=== PATIENT | female | born 1960 | race Caucasian/White ===

== ENCOUNTER 2018-08-30 14:04 | Emergency (ER) | payer SELFPAY ==
--- NOTE | 2018-08-30 14:05 | W.ED.GENAD ---
Discharge Plan Disposition Patient Disposition: HOME Condition: Good Discharge Details Chief Complaint: Orthopedic Clinical Impression: Right shoulder strain, Strain of deltoid muscle Primary Care Provider: Belinda Petersen ED Provider: Rufino Westfall Home Meds and New Rx's Prescriptions: New lidocaine [Lidoderm] 1 PATCH patch 1 patch Topical Q24H Qty: 4 RF: 0 No Action diphenhydramine HCl [Benadryl] 25 MG capsule 25 mg PO Q6H PRN RF: 0 EXCEDRIN MIGRAINE TABLET 1 EACH tablet 2 ea PO PRN RF: 0 lorazepam 0.5 MG tablet 0.5 mg PO DAILY PRNQty: 30 RF: 0 triamcinolone acetonide 15 GM cream 1 papi Topical BID PRNQty: 1 RF: 3 Discharge Instructions Instructions: Muscle Strain (ED) Additional Instructions: Please use the sling only as needed, please move your shoulder and arm every direction multiple times throughout the day to maintain mobility. Please use Tylenol and Motrin as needed for pain, as well as Lidoderm patch. If you notice any worsening of your symptoms, or any new symptoms such as vomiting, diarrhea, fever, chills, shortness of breath, chest pain, numbness, weakness, or fainting , please return immediately to the emergency department for reevaluation. Please follow up with your primary care provider as soon as possible for reassessment and reevaluation. As always, it was a pleasure participating in your medical care today. Referrals: Belinda Petersen MD [Primary Care Provider] - Medical Decision Making This is a pleasant 58-year-old female who presents today for evaluation of right shoulder pain. The patient states that yesterday she was lifting a heavy air conditioner with her feels like she might have strained her right shoulder. Morning she woke up with achiness in the right shoulder, she also admits to occasional intermittent tingling in her fingertips, as well as mild weakness with movement of her shoulder secondary to pain. Exam demonstrates notable worsening of her pain with passive and active movement of the shoulder, particularly with movement of the rotator cuff. EKG shows no evidence of STEMI, she has no significant cardiac risk factors. Signs and symptoms appear clinically inconsistent with ACS. Signs and symptoms are more concerning for an acute shoulder sprain. We will get an x-ray to rule out fracture. 3:34 PM X-ray results show no evidence of acute fracture or dislocation. Repeat exam demonstrates complete resolution of her tingling, and mild to moderate improvement of her pain. She still continues to have pain with abduction of the shoulder, and movements including the rotator cuff. Strength appears intact. Do feel that her symptoms are most likely secondary to a shoulder sprain. No neurologic deficits concerning for stroke, and signs and symptoms are inconsistent with brain mass lesion or stroke at this time. No evidence of ACS medically. EKG benign. I feel that her pain is likely secondary to a sprain from her lifting of the air conditioner yesterday. Do recommend conservative management, sling as needed, arm stretching exercises, and close follow-up with her PCP. We discussed red flags for which to return. I have extensively reviewed the treatment plan and discharge instructions with the patient. I have addressed all patient concerns at this time. The patient was made aware of what symptoms to monitor for that would warrant a return to the emergency department. Discussed the plan with the patient, they demonstrate verbal understanding and agreement with our assessment and plan at this time. EKG 14: 27 Rate 68, intervals normal, sinus rhythm, no significant ST elevations or depressions, inverted T wave in V1. No significant Q waves. Exam(s) a RAD:XR shoulder RT complete 2+V SYMPTOMS/DIAGNOSIS: RT SHOULDER PAIN WITH MOVEMENT RIGHT SHOULDER: Five views were obtained. There are minimal hypertrophic degenerative changes of the acromioclavicular joint. No other bony or soft tissue abnormality seen. Ordered By: Rufino Westfall DO CC: [facility] General Date/Time Provider Initiated Documentation: 08/30/18 14:04. HPI Narrative: This is a 58-year-old female with no significant past medical history who presents today for evaluation of right shoulder pain. Patient states that yesterday she was lifting a notably heavy air conditioner with her . She feels like she was straining her shoulder during that episode. She states that at 4 AM this morning she woke up and noted that her shoulder was significantly achy. Worse with movement. Was not improved by Tylenol. The pain is mainly in the shoulder itself, however she does have intermittent tingling in her fingers. She denies any chest pain, chest heaviness, chest tightness, neck pain, shortness of breath. She denies any cough fever or chills. She denies any previous history of cardiac disease, pulmonary disease, hypertension, high cholesterol. She does admit to a family history of heart disease in the 60s and her mother. She denies any other complaints at this time. Any previous surgeries or injuries to the shoulder. Related Data Home Medications Medication Instructions Recorded Confirmed Excedrin Migraine Tablet 2 ea PO PRN tab 12/26/12 diphenhydramine HCl [Benadryl] 25 mg PO Q6H PRN tab 12/26/12 lorazepam 0.5 mg PO DAILY PRN #30 tab 01/22/13 triamcinolone acetonide 1 papi TOPICAL BID PRN #1 tube 08/08/13 lidocaine [Lidoderm] 1 patch TOPICAL Q24H #4 patch 08/30/18 Previous Rx's Medication Instructions Recorded lidocaine [Lidoderm] 1 patch TOPICAL Q24H #4 patch 08/30/18 Allergies Allergy/AdvReac Type Severity Reaction Status Date / Time No Known Allergies Allergy Unverified 12/26/12 09:54 Review of Systems Review of Systems All systems reviewed & are unremarkable except as noted in HPI and below PFSH Medical History ASCUS (11/05/10) Anxiety Chronic low back pain Eczema History of migraine Surgical History Dilation and curettage (06/11/03) Social History Smoking/Tobacco Use Status: Former Tobacco Use Drug use: Never Substance use type: does not use Do you feel safe at home: Yes Do you feel safe in your relationship?: Yes Exam Narrative Exam Narrative: 1.Const: Well-nourished, Well-developed, appearing stated age 2.Eyes: PERRL, no conjunctival injection, and symmetrical lids. 3.ENT: Atraumatic external nose and ears. Moist MM. Neck: Symmetric, trachea midline, No thyromegaly. 4.CVS: +S1/S2, No murmurs or gallops. Peripheral pulses 2+ and equal in all extremities. Brisk capillary refill in all extremities. 5.RESP: Unlabored respiratory effort. Clear to auscultation bilaterally. No wheezes rales or rhonchi 6.GI: Soft, Nontender/Nondistended, No hepatosplenomegaly. No guarding or rebound. 7.MSK: Normocephalic/Atraumatic, Extremities w/o deformity or ttp No cyanosis or clubbing, patient does demonstrate full range of motion for her right upper shoulder. Mild tenderness on palpation of the anterior shoulder, as well as over the lateral aspect of the deltoid, notably worsened with abduction. Tenderness is also located over the joint capsule. No significant tenderness in the posterior shoulder. 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 This appears to be secondary to mild achiness. Patient demonstrates worsening of her pain with internal and external rotation, as well as flexion extension of the shoulder. Negative Turner test. Symmetrically palpable radial and ulnar pulses. Capillary refill less than 2 seconds to all digits. Intact sensation to light touch of the radial, median and ulnar nerves demonstrated by testing in the dorsal web space of the thumb, the distal palmar aspect of the index finger, and the lateral surface of the fifth finger. 2 point discrimination intact to 5mm (up to 6mm can be normal in digits 3-5) of discrimination in the affected digit. 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 Intact recurrent median nerve as demonstrated by ability to move thumb fully through opposition, abduction and flexion. No snuffbox tenderness. 8.Skin: Warm, Dry. No rashes or lesions. 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 Sensation grossly intact, no focal neurologic deficits. All 6 cardinal planes of vision are fully intact. No evidence of rotatory or vertical nystagmus. The patient demonstrated a normal [id number], good dexterity. There was no evidence of dysdiadochokinesia. Patient was able to ambulate without difficulty. There was no wide-based gait. Romberg, and ujcq-[id number] are both normal on testing. Sensation was intact bilaterally as well as muscle strength bilaterally for all extremities. Patient was able to verbalize butter cup with no slurring, or miss pronunciation. 10.Psych: (AAO) x3. Appropriate mood and affect
[2018-08-30 14:10] VITALS: BP 159/84; PULSE 71; RESP 16; TEMP 36.9; O2SAT 99
--- NOTE | 2018-08-30 14:10 | DI.RAD_ITS ---
SYMPTOMS/DIAGNOSIS: RT SHOULDER PAIN WITH MOVEMENT RIGHT SHOULDER: Five views were obtained. There are minimal hypertrophic degenerative changes of the acromioclavicular joint. No other bony or soft tissue abnormality seen.
[2018-08-30] MEDS: Lidocaine 5% Patch 1 PATCH TP (14:53)
[2018-08-30] MEDS: Acetaminophen 500 MG TAB 1000 MG PO (14:54)
[2018-08-30] MEDS: Ibuprofen 800 MG TAB PO (14:54)
== END 2018-08-30 16:00 | disposition home or self-care (01) ==
PROVIDERS: Emergency Provider Student in an Organized Health Care Education/Training Program; PCP Internal Medicine
DX: S46.811A Strain of other muscles, fascia and tendons at shoulder and upper arm level, right arm, initial encounter (principal); R20.2 Paresthesia of skin; X50.1XXA Overexertion from prolonged static or awkward postures, initial encounter
CPT/HCPCS: 93005; 99284; 73030; 93010; L3650

== ENCOUNTER 2020-11-16 15:44 | Outpatient (REF) | payer MEDICAID, SELFPAY ==
[2020-11-18 13:38] LABS: COVID-19 RT-PCR UVMMC Result Negative (Negative)
== END 2020-11-16 15:45 | disposition home or self-care (01) ==
LOC: LBN 15:44
PROVIDERS: Visit Provider Nurse Practitioner Family
DX: Z20.822 Contact with and (suspected) exposure to COVID-19 (principal); J06.9 Acute upper respiratory infection, unspecified
CPT/HCPCS: U0003

== ENCOUNTER 2020-11-16 23:28 | Outpatient (CLI) | payer MEDICAID, SELFPAY ==
--- NOTE | 2020-11-16 | DI.RAD_ITS ---
Exam(s) XR CHEST 2V PA LATERAL EXAM: XR CHEST 2V PA LATERAL CLINICAL HISTORY: ORTHOPNEA, R06.01; FEVER, R06.01 TECHNIQUE: 2D digital imaging was performed. COMPARISON: No exams were available for comparison FINDINGS: MEDIASTINUM: Normal. HEART: Normal. PULMONARY VASCULATURE: Normal. LUNGS: Clear. PLEURAL SPACE: No pleural effusion or pneumothorax. BONE:Unremarkable for age. IMPRESSION: No acute abnormality. DATA REPOSITORY: RADIATION DOSE DELIVERED:
--- NOTE | 2020-11-16 16:48 | DI.VRAD_ITS ---
PROCEDURE INFORMATION: Exam: XR Chest Exam date and time: 11/16/2020 3:47 PM Age: 60 years old Clinical indication: Other: SOB, fever, orthopnea TECHNIQUE: Imaging protocol: XR of the chest. Views: 2 views. COMPARISON: CR XR shoulder RT complete 2+V 08/30/2018 2:35 PM FINDINGS: Lungs: Unremarkable. No consolidation. Pleural spaces: Unremarkable. No pleural effusion. No pneumothorax. Heart/Mediastinum: Unremarkable. No cardiomegaly. Bones/joints: Unremarkable. IMPRESSION: No acute findings. Dictated and Authenticated by: Rafaela Sloan MD. Ordering:YASEMIN Rascon MD
== END 2020-11-16 23:48 ==
PROVIDERS: Visit Provider Nurse Practitioner Family
DX: R06.01 Orthopnea (principal); R50.9 Fever, unspecified
CPT/HCPCS: 71046

== ENCOUNTER 2022-05-04 01:15 | Outpatient (CLI) | payer MEDICAID, SELFPAY ==
--- NOTE | 2022-05-04 08:00 | DI.US_ITS ---
Exam(s) US SOFT TISSUE EXTREMITY EXAM: US SOFT TISSUE EXTREMITY CLINICAL HISTORY: LUMP ANTERIOR LEFT SHOULDER,M79.89. TECHNIQUE: Ultrasound was performed using standard protocol. COMPARISON: No exams were available for comparison FINDINGS: Sonographic assessment utilizing grayscale and color Doppler imaging was performed and targeted to th e area of clinical concern. No cystic or solid masses are seen sonographically. IMPRESSION: Unremarkable examination. DATA REPOSITORY:
== END 2022-05-04 01:35 ==
PROVIDERS: PCP Nurse Practitioner; Visit Provider Nurse Practitioner
DX: M79.89 Other specified soft tissue disorders (principal); R22.32 Localized swelling, mass and lump, left upper limb
CPT/HCPCS: 76881

== ENCOUNTER 2022-11-08 13:42 | Emergency (ER) | payer MEDICAID, SELFPAY ==
[2022-11-08 13:49] VITALS: BP 137/90; PULSE 59; RESP 18; O2SAT 98
--- NOTE | 2022-11-08 14:00 | DI.CT_ITS ---
Exam(s) CT HEAD WO EXAM: CT HEAD WO CLINICAL HISTORY: head injury. TECHNIQUE: Imaging Protocol: Axial computed tomography images with coronal and sagittal reformatted images were created and reviewed COMPARISON: No exams were available for comparison FINDINGS: There are no skull fractures. There is no fluid in the visualized paranasal sinuses. There is no evidence of intracranial hemorrhage, mass effect, or shift of midline structures. There are no extra-axial fluid collections. The ventricles are not enlarged or shifted and there is no blo od within the ventricular system nor within the basal cisterns. IMPRESSION: No acute intracranial findings on this noninfused CT scan of the brain. RADIATION DOSE DELIVERED: 659.33mGy.cm Total DLP DATA REPOSITORY: All CT scans at this facility are submitted to the National Radiology Data Registry (NRDR) Dose Index Registry (DIR) with the [employer] (ACR). RADIATION OPTIMIZATION: All CT scans at this facility use at least one of these dose optimization te chniques: automated exposure control; mA and/or kV adjustment per patient size (includes targeted exa ms where dose is matched to clinical indication); or iterative reconstruction.
--- NOTE | 2022-11-08 14:00 | DI.RAD_ITS ---
Exam(s) XR WRIST RT COMPLETE EXAM: XR WRIST RT COMPLETE CLINICAL HISTORY: wrist pain. TECHNIQUE: 2D digital imaging was performed. COMPARISON: No exams were available for comparison FINDINGS: 3 views No evidence acute fracture or dislocation nor significant ulnar variance. Bone density normal. No o sseous lesions nor erosions. No obvious degenerative changes. IMPRESSION: No acute osseous findings in the wrist. DATA REPOSITORY: RADIATION DOSE DELIVERED:
[2022-11-08] MEDS: Acetaminophen 325 MG TAB 650 MG PO (14:17)
--- NOTE | 2022-11-08 15:48 | W.ED.GENAD ---
Discharge Plan Disposition Patient Disposition: Home Discharge Details Clinical Impression: Concussion, Muscle strain of right wrist Primary Care Provider: Mackenzie Hollis ED Provider: Elyse Segura Home Meds and New Rx's Prescriptions: New cyclobenzaprine 10 mg tablet 10 mg PO TID PRNQty: 14 0RF Continued methocarbamol 500 mg tablet 500 mg PO BID PRN (Reason: TMJ) Qty: 30 0RF solifenacin [Vesicare] 5 mg tablet 5 mg PO DAILY Qty: 90 1RF EXCEDRIN MIGRAINE TABLET 1 EACH tablet 2 ea PO PRN triamcinolone acetonide 0.1 % cream See Rx Instructions .ROUTE .COMPLEX Qty: 30 1RF Dose Instruction: APPLY TOPICALLY TO HAND TWO TIMES A DAY FOR ECZEMA Rx Instructions: APPLY TOPICALLY TO HAND TWO TIMES A DAY FOR ECZEMA Discharge Instructions Instructions: Muscle Strain (ED), Concussion (ED) Additional Instructions: Wear your splint for the next week for discomfort as needed, ibuprofen and Tylenol as needed for pain Follow-up with your primary care physician in 2 to 3 days for reassessment and return earlier should you have new or worsening complaints I suspect you may have a concussion, do not operate your vehicle implant on the rest and hydration for the next several days Please return should develop worsening headache, worsening pain, uncontrolled vomiting, or with any new or progressing symptoms Referrals: Mackenzie Hollis NP [Primary Care Provider] - Discharge Data Discharge Date/Time-TO BE ENTERED AT DEPARTURE: 11/08/22 15:53 Medical Decision Making 62-year-old female presents with report of fall this morning, landing on her head and right wrist, she has had pain since that time. GCS 15, ambulatory steady gait, no visible sign of head trauma, pupils equal round reactive to light and accommodation, no chest wall tenderness, no hip tenderness, no abdominal tenderness, neurovascularly intact, GCS 15, right wrist with tenderness, mild swelling, and no tenderness to right elbow, no midline cervical spine tenderness, x-ray of right wrist does not show evidence of acute abnormality per radiology interpretation and my review CT head does not show evidence of acute abnormality pressure radiologist interpretation my review suspect patient has a concussion, precautions reviewed Right wrist was placed in a splint for comfort Return precautions discussed and patient expressed understanding HPI General Date/Time Provider Initiated Documentation: 11/08/22 14:05. HPI Narrative: This 62-year-old female presents with report of fall backward after slipping. She states that she had fluffy socks on and she thinks she slept backward. She did hit her head and her right wrist. She denies anticoagulation or loss of consciousness. She remembers the entirety of the event. She states that she had persistent pain to her head and her right wrist since that time, she denies any neck pain, strength or sensation changes distally, or any additional complaints at this time. Related Data Home Medications Medication Instructions Recorded Confirmed Excedrin Migraine Tablet 2 ea PO PRN 12/26/12 11/08/22 methocarbamol 500 mg tablet 500 mg PO BID PRN TMJ #30 tabs 04/19/22 11/08/22 solifenacin 5 mg tablet (Vesicare) 5 mg PO DAILY #90 tabs 07/25/22 11/08/22 cyclobenzaprine 10 mg tablet 10 mg PO TID PRN #14 tabs 11/08/22 triamcinolone acetonide 0.1 % See Rx Instructions .Route 11/08/22 11/08/22 topical cream .COMPLEX #30 grams Previous Rx's Medication Instructions Recorded methocarbamol 500 mg tablet 500 mg PO BID PRN TMJ #30 tabs 04/19/22 solifenacin 5 mg tablet (Vesicare) 5 mg PO DAILY #90 tabs 07/25/22 cyclobenzaprine 10 mg tablet 10 mg PO TID PRN #14 tabs 11/08/22 triamcinolone acetonide 0.1 % See Rx Instructions .Route 11/08/22 topical cream .COMPLEX #30 grams Allergies Allergy/AdvReac Type Severity Reaction Status Date / Time No Known Allergies Allergy Verified 11/08/22 13:53 General Stated Complaint: Fall/Non TraumaCriteria DAVON: 3 PFSH All Active Problems (Updated 11/08/22 @ 15:45 by LYLY Barrera) Concussion (Acute) Muscle strain of right wrist (Acute) OAB (overactive bladder) (Acute) SARS-CoV-2 positive (Acute ~07/30/21) Right shoulder tendonitis (Acute) Injection: 10/03/18 Medical History Anxiety ASCUS (11/05/10) Chronic low back pain Eczema History of migraine Surgical History (Updated 12/20/17 @ 14:36 by MEDITECH MT) Dilation and curettage (06/11/03) Family History (Updated 11/01/22 @ 16:33 by Rebecca Ljuan LPN) Mother Dementia Father Cancer lung Social History (Updated 11/01/22 @ 16:46 by Rebecca Lujan LPN) Smoking/Tobacco Use Status: Former Tobacco Use Smoking risk assessment performed?: Yes Alcohol Intake: current Alcohol Intake frequency: holidays/special occasions only Drug use: Never Substance use type: does not use Household members: spouse Number of Children: 2 number of grandchildren: 3 Communication Needs: None Education Level: high school Do you need help understanding health information?: Rarely current occupation: retired from [email or web address] Do you think of yourself as: straight/heterosexual What is your relationship status?: How often do you talk on the phone with friends or family?: three or more times per week How often do you get together with friends or relatives?: three or more times per week Panel score (0-1 are the most socially isolated patients): 2 What type of physical activity do you participate in: none Seatbelt use: always Working smoke detector in home: Yes Carbon monox detector in home: Yes Do you feel safe at home: Yes Do you feel safe in your relationship?: Yes Victim of physical abuse: No Course Vital Signs Vital signs: Vital Signs Pulse 59 L 11/08/22 13:49 Respiratory Rate 18 11/08/22 13:49 Blood Pressure 137/90 11/08/22 13:49 Pulse Oximetry 98 11/08/22 13:49 Pulse 59 L 11/08/22 13:49 Respiratory Rate 18 11/08/22 13:49 Respiratory Effort Normal 11/08/22 13:52 Blood Pressure 137/90 11/08/22 13:49 Blood Pressure Position Sitting 11/08/22 13:49 Pulse Oximetry 98 11/08/22 13:49 Oxygen Delivery Method Room Air 11/08/22 13:49 Oxygen Flow Rate 0 11/08/22 13:49 Pain Level 5 11/08/22 13:57
--- NOTE | 2022-11-14 07:21 | NUR.NOTE ---
Nursing Note: Accessed pt chart to determine which extremity for [facility].
== END 2022-11-08 15:53 | disposition home or self-care (01) ==
PROVIDERS: Emergency Provider Physician Assistant; PCP Nurse Practitioner
DX: S06.0X0A Concussion without loss of consciousness, initial encounter (principal); S66.911A Strain of unspecified muscle, fascia and tendon at wrist and hand level, right hand, initial encounter; W01.0XXA Fall on same level from slipping, tripping and stumbling without subsequent striking against object, initial encounter
CPT/HCPCS: 29125; 99284; 70450; 73110; 99283

== ENCOUNTER 2023-01-03 13:52 | Outpatient (REF) | payer MEDICAID, SELFPAY ==
--- NOTE | 2023-01-03 13:30 | PAPFT_PTH ---
PATIENT: Vibha Barron LOC: [facility] U#:[id number] AGE/SX: 62/F ROOM: RE01/03/[address]: Mackenzie Hollis APRN : 1960 BED: DIS: 01/03/2023 SPEC #: [id number] RECD: 01/03/23 17:24 STATUS: FRANCISCO J REKarrie #: [id number] GAVIN: 01/03/23 13:[address]: Mackenzie Hollis DEPT: [facility] Cytology RECD BY: Elyse Ureña Tissues: 1 - CX/ENDOCX FOR PAP SMEARS Procedures: PAP THIN PREP/UVM Screening HPV DNA PROBE Comments: [id number]
== END 2023-01-03 13:53 | disposition home or self-care (01) ==
LOC: LBN 13:52
PROVIDERS: PCP Nurse Practitioner; Visit Provider Nurse Practitioner
DX: Z12.4 Encounter for screening for malignant neoplasm of cervix (principal); Z11.51 Encounter for screening for human papillomavirus (HPV)
CPT/HCPCS: 88142; 87624

== ENCOUNTER 2023-01-18 03:01 | Outpatient (CLI) | payer MEDICAID, SELFPAY ==
[2023-01-18 11:20] LABS: Abs Immature Grans 0.03 10^3/uL (0.0-0.06); Absolute Basophil Count 0.09 10^3/uL (0.0-0.2); Absolute Eosinophil Count 0.09 10^3/uL (0.0-0.7); Absolute Lymphocyte Count 1.74 10^3/uL (1.2-3.4); Absolute Monocyte Count 0.51 10^3/uL (0.1-0.8); Absolute Neutrophil Count 5.05 10^3/uL (1.2-6.7); Basophils % 1.2; Eosinophils % 1.2; HCT 42.3 % (36.0-46.0); HGB 14.5 g/dL (11.2-15.7); Immature Grans % 0.4; Lymphocytes % 23.2; MCH 29.6 pg (27.0-33.0); MCHC 34.3 % (32.0-36.0); MCV 86 fL (80-95); MPV 10.7 fL (8.0-11.0); Monocytes % 6.8; Neutrophils % 67.2; Platelet Count 271 10^3/uL (130-400); RDW 12.2 % (11.7-14.6); RDW-SD 38.5 fL; WBC 7.51 10^3/uL (4.4-10.8)
[2023-01-18 11:23] LABS: Hemoglobin A1C 5.2 % (<5.7)
[2023-01-18 11:53] LABS: ALT 24 U/L (14-59); AST 15 U/L (15-37); Albumin 4.4 g/dL (3.4-5.0); Alkaline Phosphatase 75 U/L (46-116); Anion Gap 9.4 mmol/L (3-11); BUN 12 mg/dL (7-18); Bilirubin, Total 0.6 mg/dL (0.2-1.0); CO2 28.6 mmol/L (21.0-32.0); CREATININE 0.9 mg/dL (0.55-1.02); Calcium 9.8 mg/dL (8.5-10.1); Calculated LDL 150 mg/dL (<100); Chloride 105 mmol/L (98-107); Cholesterol 232 mg/dL (<200); Estimated GFR 73.19 (mL/min/1.73m2); Glucose 106 mg/dL (74-106); HDL Cholesterol 61 mg/dL (40-60); Potassium 3.9 mmol/L (3.5-5.1); Sodium 143 mmol/L (136-145); Total Protein 8.5 g/dL (6.4-8.2); Triglyceride 106 mg/dL (<150)
== END 2023-01-18 03:02 | disposition home or self-care (01) ==
LOC: LBO 03:01
PROVIDERS: Absent Provider Nurse Practitioner; PCP Nurse Practitioner; Referring Provider Nurse Practitioner; Visit Provider Nurse Practitioner
DX: Z13.220 Encounter for screening for lipoid disorders (principal); E66.3 Overweight; Z83.3 Family history of diabetes mellitus
CPT/HCPCS: 36415; 80053; 80061; 83036; 85025

== ENCOUNTER → 2023-06-14 02:59 | Outpatient (CLI) | payer MEDICAID, SELFPAY ==
--- NOTE | 2023-06-14 08:15 | DI.MAMMO_ITS ---
Exam(s) MAMMO SCREENING EXAM: MAMMO SCREENING CLINICAL HISTORY: screening,z12.39. TECHNIQUE: Bilateral full field digital CC and MLO mammographic images were obtained with 3D tomosyn thesis and utilizing computer aided detection (CAD). COMPARISON: Prior mammograms 2010 and 2013 reviewed. There are no interval mammograms since 2013. FINDINGS: In the left breast on the cc 3D view there is an asymmetric density-possible nodule measuring 8 x 6 m m located approximately 7 cm in from the nipple. Requires spot compression view and ultrasound. In the opposite-right breast there is a nodular density towards the upper outer quadrant as well as a group of microcalcifications in this region which will require spot views.. Nodule measures 9 x 7 mm and is located 6 cm in from the nipple on the MLO view. This nodule has benign appearance but was no t previously present. Requires spot compression view including 2D spot Mag view of the adjacent micro calcification group. There is no significant architectural distortion nor skin thickening-retraction. IMPRESSION: No radiographic evidence of malignancy. Bilateral findings requiring spot compression views. Also 2D Mag views of a group of microcalcifications in the upper-outer quadrant of the right breast. BI-RADS Category 0 - Assessment Incomplete: Need additional imaging evaluation Breast Density - Category C - Heterogeneously dense Breast density Category C or D implies that the patient has dense breast tissue. Dense breast tissue can make it harder to find cancer on a mammogram. Dense breast tissue is also associated with an incr eased risk of breast cancer. This information about the result of the mammogram report was provided to the patient to raise their awareness. Use this report when you speak with the patient about their risks for breast cancer, which includes their family history. At that time, you may recommend additional screening tests (Ultrasoun d or MRI) as these tests may add significant information. A negative radiographic report should not delay biopsy if a dominant or clinically suspicious mass is present. Up to ten percent of cancers are not identified on mammography. A negative report may reinforce clinical impression. Adenosis and dense breasts may obscure an underlying neoplasm. False positive reports average 6 to 10%. Patient will receive a letter notifying them of these results.
== END ==
PROVIDERS: PCP Nurse Practitioner; Visit Provider Nurse Practitioner
DX: Z12.31 Encounter for screening mammogram for malignant neoplasm of breast (principal)
CPT/HCPCS: 77063; 77067

== ENCOUNTER → 2023-06-29 02:04 | Outpatient (CLI) | payer MEDICAID, SELFPAY ==
--- NOTE | 2023-06-29 | DI.US_ITS ---
Exam(s) US BREAST LT COMPLETE US BREAST RT COMPLETE MG MAMMO SCREEN CALL BACK BI EXAM: MG MAMMO SCREEN CALL BACK BI AND BILATERAL COMPLETE BREAST ULTRASOUND CLINICAL HISTORY: F/U MAMMO,LT BREAST ASYMMETRIC DENSITY,?NODULE,RT BREAST NODULAR DENSITY,. TECHNIQUE: BILATERAL spot mammographic images obtained with 3D tomosynthesisand utilizing computer a ided detection (CAD). . Complete BILATERAL breast Ultrasound was also performed, including all 4 quadrants, the retroareolar regions, and the bilateral axillary regions.. COMPARISON: Prior mammograms were reviewed. This additional imaging was performed due to findings described on the recent screening mammogram of 06/14/2023. FINDINGS: DIAGNOSTIC BILATERAL MAMMOGRAM: Additional LEFT BREAST mammographic views performed todayare equivocal for the presence of a true nod ule.Left breast was negative on ultrasound. Additional RIGHT BREAST mammographic spot images reveal the microcalcifications to presently a benign appearance. The previously described possible nodule does not dissipate. In measures approximately 8 x 6 mm. Ex hibits lobulated edge which may contain some calcification. COMPLETE BILATERAL BREAST ULTRASOUND: Left breast ultrasound performed today reveals no significant focal findings in all 4 quadrants of th e left breast. This implies that the finding on mammogram is probably benign intramammary lymph node .. Scanning of the ipsilateral axilla reveals no significant adenopathy. RIGHT BREAST ultrasound reveals a solid lobulated slightly wider than taller nodule at the 9 o'clock position measuring approximately 1.2 by 0.9 cm, exhibiting neutral through transmission and not exhib iting obvious hyperechoic calcification. There are no other focal ultrasound findings in the right b reast. Scanning of the right axilla is negative for adenopathy. IMPRESSION: 1. There is a 12 x 9 millimeter lobulated solid nodule at the 9 o'clock position of the right breast on ultrasound which corresponds to the finding on the mammogram. Ultrasound-guided biopsy is recomm ended. 2. The previously described microcalcifications in the right breast can be followed in 6 months. 3. The nodular density seen on mammography in the opposite-left breast does not exhibit finding on u ltrasound and may be a benign intramammary lymph node. Should undergo repeat mammogram in 6 months The patient was informed of these findings and recommendations by myself prior to leaving the departm ent today. Also discussed by phone with Dr. Johnson following completion of this study 06/29/2023 BI-RADS Category 4 - Suspicious Abnormality: Biopsy should be considered Breast Density - Category C - Heterogeneously dense Breast density Category C or D implies that the patient has dense breast tissue. Dense breast tissue can make it harder to find cancer on a mammogram. Dense breast tissue is also associated with an incr eased risk of breast cancer. This information about the result of the mammogram report was provided to the patient to raise their awareness. Use this report when you speak with the patient about their risks for breast cancer, which includes their family history. At that time, you may recommend additional screening tests (Ultrasoun d or MRI) as these tests may add significant information. A negative radiographic report should not delay biopsy if a dominant or clinically suspicious mass is present. Up to ten percent of cancers are not identified on mammography. A negative report may reinforce clinical impression. Adenosis and dense breasts may obscure an underlying neoplasm. False positive reports average 6 to 10%. Patient will receive a letter notifying them of these results.
== END ==
PROVIDERS: PCP Nurse Practitioner; Visit Provider Nurse Practitioner
DX: R92.8 Other abnormal and inconclusive findings on diagnostic imaging of breast (principal); Z12.31 Encounter for screening mammogram for malignant neoplasm of breast
CPT/HCPCS: 76642; 77063; 77067

== ENCOUNTER → 2023-07-10 01:37 | Outpatient (CLI) | payer MEDICAID, SELFPAY ==
--- NOTE | 2023-07-10 | DI.US_ITS ---
Exam(s) US NEEDLE LOCAL BREAST WO RAD EXAM: Rt breast mass,ULTRASOUND GUIDED BREAST BX COMPARISON: US US BREAST LT COMPLETE from 06/29/2023 TECHNIQUE: Ultrasound performed using standard protocol. FINDINGS: Sonography was provided for Dr. Bolden during the performance of a right breast biopsy. Please ref er to the procedure report for complete details. DATA REPOSITORY:
--- NOTE | 2023-07-10 12:30 | BREAST_PTH ---
PATIENT: Vibha Barron LOC: [facility] U#:[id number] AGE/SX: 64/F ROOM: RE07/10/[address]: Tony Grant MD : 1960 BED: DIS: SPEC #: [id number] RECD: 07/10/23 13:04 STATUS: FRANCISCO J REKarrie #: [id number] GAVIN: 07/10/23 12:[address]: Tony Grant DEPT: Surgical Specimen RECD BY: Elyse Ureña ENTERED: 07/10/23 13:05 SP TYPE: Breast OTHR DR: Mackenzie Hollis APRN Tissues: 1 - BREAST BX NEEDLE Procedures: GROSS AND MICRO LEVEL 4 Comments: [id number]
--- NOTE | 2023-07-11 08:58 | ROE_ITS ---
Date of service: 07/11/23 Time of Service: 08:58 Operative Note Operative Note DATE OF PROCEDURE: 07/11/23 PRE-OP DIAGNOSIS: Mass on a class for mammogram requiring biopsy?right POST-OP DIAGNOSIS: same PROCEDURE: Right ultrasound-guided needle biopsy SURGEON: Gricelda Bolden ANESTHESIA TYPE: Local By Surgeon Refer to Anesthesia Record ESTIMATED BLOOD LOSS: 3 PATHOLOGY: other COMPLICATIONS: None Patient was transported to: no change Patient's condition: stable Procedure Description: Patient is a 62-year-old female who had her recent routine screening mammograms and was found to have a 8 cm nodule and 9 o'clock position in the right breast is here today for ultrasound-guided biopsy. Informed consent obtained Splane risk and benefits of procedure include not limited to bleeding infection scarring poor cosmesis need for more tissue reaction to local anesthetics another room for told complications. Timeout is performed. Patient is anest hetized with 15 cc of 1% lidocaine plain. The lesion is localized by the ultrasound department. 4 passes were made with a Sami-Cut core needle biopsy. Good specimen is obtained. Pressure was held. No bleeding is noted. A clip is placed in the lesion postprocedural. Compression dressings are applied. Patient was given postop instructions. Patient have surgery well without complication. We will call her with biopsy results. Images were captured by ultrasound.
== END ==
PROVIDERS: PCP Nurse Practitioner; Visit Provider Surgery
DX: C50.811 Malignant neoplasm of overlapping sites of right female breast
CPT/HCPCS: 19083; 88305; 76942

== ENCOUNTER 2023-09-07 16:18 | Outpatient (REF) | payer BC, SELFPAY ==
[2023-09-07 17:22] LABS: COVID-19 PCR Negative (Negative); Influenza A PCR Negative (Negative); Influenza B PCR Negative (Negative); RSV PCR Negative (Negative)
[2023-09-07 17:24] LABS: Source NASOPHARYNX
== END 2023-09-07 16:19 | disposition home or self-care (01) ==
LOC: LBN 16:18
PROVIDERS: PCP Nurse Practitioner; Visit Provider Physician Assistant Medical
DX: J02.9 Acute pharyngitis, unspecified (principal); Z20.822 Contact with and (suspected) exposure to COVID-19
CPT/HCPCS: 87637; 87070

== ENCOUNTER 2024-06-04 15:40 | Outpatient (CLI) | payer BC, SELFPAY ==
--- NOTE | 2024-06-04 13:45 | DI.RAD_ITS ---
Exam(s) XR SHOULDER RT COMPLETE 2+V EXAM: XR SHOULDER RT COMPLETE 2+V CLINICAL HISTORY: RIGHT SHOULDER PAIN. TECHNIQUE: 2D digital imaging was performed. COMPARISON: No exams were available for comparison FINDINGS: 3 views There is no evidence of fracture or dislocation nor abnormal soft tissue calcifications. The subacro mial space is not diminished. There no degenerative changes evident in the glenohumeral joint. Mild degenerative changes in the AC joint. Clavicle appears intact. Bone density normal. No osseous le sions. IMPRESSION: No significant radiographic findings in the right shoulder and no significant change compared to 2019 . DATA REPOSITORY: RADIATION DOSE DELIVERED:
== END 2024-06-04 15:41 | disposition home or self-care (01) ==
LOC: DIORS 15:41
PROVIDERS: PCP Nurse Practitioner; Visit Provider Student in an Organized Health Care Education/Training Program
DX: M25.511 Pain in right shoulder (principal)
CPT/HCPCS: 73030

== ENCOUNTER 2024-06-27 01:13 | Outpatient (CLI) | payer BC, SELFPAY ==
--- NOTE | 2024-06-27 07:45 | DI.MRI_ITS ---
Exam(s) MR UPPER JOINT RT WO EXAM: MR UPPER JOINT RT WO CLINICAL HISTORY: R SHOULDER PAIN,rt rotator cuff tear,m75.101 TECHNIQUE: Multiplanar multisequence MRI of the shoulder was performed. COMPARISON: CR XR SHOULDER RT COMPLETE 2+V from 06/04/2024 FINDINGS: MARROW:There is no evidence of fracture, Hill-Sachs deformity, nor ominous osseous lesions. GLENOHUMERAL JOINT: No joint effusion nor obvious loose intra-articular bodies. No chondral defects. No osteophytes. There are no degenerative subarticular cysts in the osseous glenoid. There are 2 s mall degenerative subarticular cysts noted in the lateral humeral head at the greater tuberosity leve l subjacent to the infraspinatus insertion site. ROTATOR CUFF MECHANISM: AC JOINT/ACROMIUM: There are mild-moderate degenerative changes in the AC joint. There are small wales[place] ngoing osteophytes on both clavicular and acromial side of the AC joint. There is no enthesophyte ev ident at the level of the coracoacromial ligament nor at the coracoid clavicular ligament. There is no evidence of os acromiale. Supraspinatus: There is signal abnormality consistent with an element of tendinitis in the supraspina tus tendon approximately 1 cm above the greater tuberosity. There is no full-thickness tear. No mus sneha atrophy. There is no significant fluid in the subacromial bursa space. Infraspinatus: Intact. No evidence of tear nor muscle atrophy. Teres Minor: Intact. No evidence of tear nor muscle atrophy. Subscapularis/anterior cuff: Intact. No abnormal signal at the level of the multipennate insertional fibers. No significant tear nor atrophy. BICEPS TENDON: Exhibits normal position within the intertubercular groove. No evidence of tear. No tenosynovitis. LABRUM: There is no evidence of paralabral cyst. There is some signal abnormality in the superior la saida posterior to the biceps attachment. The superior labrum also appears mildly deficient. Posteri or labrum also appears mildly deficient. Anterior labrum appears small above the equator but without obvious tear. Inferior labrum appears intact. Inferior glenohumeral ligament appears intact. LABROLIGAMENTOUS/CAPSULAR COMPLEX: There is no evidence of avulsion of the anterior-inferior labrum, capsule, inferior glenohumeral liga ment complex nor disruption of the scapular periosteum to suggest the presence of a Bankart lesion. QUADRILATERAL SPACE: No evidence of mass in the region of the axillary nerve and dorsal circumflex hu meral vessels. Visualized triceps muscle at this level appears unremarkable. IMPRESSION: 1. There is some tendinitis signal in the supraspinatus tendon but no evidence of full-thickness tear nor muscle atrophy. There are small downgoing osteophytes on both sides of the AC joint which are p robably causing an element of impingement here. 2. Other muscular components of the rotator cuff mechanism appear unremarkable. 3. Mild multilevel labral findings which are probably surface degenerative changes. There is no actu al in invagination of fluid signal between the osseous glenoid and the labrum to suggest typical labr al tear. There is also no evidence of biceps tendon tear nor biceps tendon displacement. 4. No significant osteoarthritic degenerative changes in the glenohumeral joint and no evidence of g lenohumeral joint effusion nor loose intra-articular bodies nor osteophytes. DATA REPOSITORY:
== END 2024-06-27 01:33 ==
LOC: DI 01:13
PROVIDERS: PCP Nurse Practitioner; Visit Provider Student in an Organized Health Care Education/Training Program
DX: M75.21 Bicipital tendinitis, right shoulder (principal)
CPT/HCPCS: 73221

== ENCOUNTER 2024-08-22 06:09 | Day surgery (SDC) | payer MEDICAID, SELFPAY ==
[2024-08-22] VITALS (23 sets, daily range): BP systolic 119–147; BP diastolic 63–84; PULSE 46–66; RESP 10–23; TEMP 35.8–36.9; O2SAT 93–98; BMI 31.0
--- NOTE | 2024-08-22 06:03 | ANES.PREOP_ITS ---
General Info Date of Service Date Performed: 08/22/24 Height: 5 ft 8 in Weight: 92.533 kg Body Mass Index (BMI): 31.0 Surgical Procedure: Operation Date: 08/22/24 07:40 Proposed Procedure Side Surgeon p Shoulder Manipulation Right Jayme Tobar MD Meds Allergies and Home Medications Allergies Allergy/AdvReac Type Severity Reaction Status Date / Time trazodone AdvReac Intermediate Dizziness/L Verified 08/22/24 06:19 [place] Home Medication ?Medication ?Instructions ?Recorded Excedrin Migraine Tablet 2 ea PO PRN 12/26/12 cyclobenzaprine 10 mg tablet 10 mg PO TID PRN muscle s pasm #90 06/10/24 tabs ibuprofen 800 mg tablet 800 mg PO Q8H PRN R shoulder pain 06/10/24 #270 tabs lorazepam 1 mg tablet 1 mg PO ONCE PRN prior to MR I #1 06/10/24 tab solifenacin 5 mg tablet See Rx Instructions .Route 0 06/10/24 .COMPLEX #90 tabs triamcinolone acetonide 0.1 % See Rx Instructions .Rou te 06/10/24 topical cream .COMPLEX #30 grams naproxen 250 mg tablet 250 - 500 mg (1 - 2 x 250 mg ) PO 08/22/24 BID PRN Moderate pain #40 tabs oxycodone 5 mg tablet 5 - 10 mg (1 - 2 x 5 mg) PO Q4H 08/22/24 PRN Moderate to severe pain #18 tabs Current Visit Medications: Current Medications Generic Name Dose Route Start Last Admin Trade Name Freq PRN Reason Stop Dose Admin Ringer's Solution 1,000 mls @ 30 mls/hr 08/22/24 06:00 IV 08/22/24 23:59 INFUSION KIRSTIE IV Miscellaneous Supplies 1 each 08/22/24 06:00 Iv Access IV 08/22/24 23:59 DIRECTED KIRSTIE Sodium Chloride 0 ml 08/22/24 06:00 Normal Saline Flush 10 Ml Syr IV 08/22/24 23:59 PRN PRN Sodium Chloride 0 ml 08/22/24 06:00 Normal Saline 10 Ml Vial IJ 08/22/24 23:59 DIRECTED PRN Sterile Water 0 ml 08/22/24 06:00 Water,Injection,Sterile 10 Ml Vial IJ 08/22/24 23:59 DIRECTED PRN PFSH Active Problems Active Problems: Problem Status Onset Code Adhesive capsulitis of right shoulder Acute M75.01 Rotator cuff tear, right Acute M75.101 Abnormality of right breast on screening mammogram Acute R92.8 OAB (overactive bladder) Acute N32.81 SARS-CoV-2 positive Acute ~07/30/21 U07.1 Right shoulder tendonitis Acute M75.81 Medical History Medical History Anxiety ASCUS (11/05/10) Chronic low back pain Eczema History of migraine Surgical History Surgical History Dilation and curettage (06/11/03) Tobacco Smoking/Tobacco Use Status: Former Tobacco Use Alcohol Alcohol Intake: current Alcohol intake frequency: holidays/special occasions only Substance Use Substance use: Never Substance use type: does not use Vital Signs and Lab Results Vital Signs Comment Vital Signs Comment:: Temp Pulse Resp BP Pulse Ox 35.8 C L 56 L 18 147/70 H 97 08/22/24 06:20 08/22/24 06:20 08/22/24 06:20 08/22/24 06:20 08/22/24 06:20 Anesthesia Assessment and Plan Anesthesia History Personal History: No History of Anesthesia Complications Family History: No Family History of Anesthesia Complications Exercise Tolerance Exercise Tolerance: Metabolic Equivalents>4 Pertinent Negatives Pertinent Negatives: No Symptoms of GERD, No Major Cardiovascular Symptoms or Complaints and No Major Pulmonary Symptoms or Complaints Cardiac & Pulmonary Exam Cardiac Exam: Normal S1/S2 Heart Sounds Pulmonary Exam: Clear Bilateral Breath Sounds Implantable Cardiac Device Does patient have a Pacemaker or an ICD?: No Airway Exam Known Difficult Airway: No Mallampati Class: 4 (Significant TMJ, spasm) Mouth Opening: Normal (> 3cm) Thyromental Distance: Greater than 3 cm Neck Range of Motion: Full ROM Neck Circumference: Normal Teeth Condition: Normal Dentition ASA Classification ASA Score: ASA 2 Emergency Case?: No NPO Status NPO Status: NPO Clears >2 hours, Solids >8 hours Anesthesia Plan Resuscitation Status: Full Code Anesthesia Technique: General Anesthesia Airway Planned: Natural Airway Pain Management: Surgeon and patient request nerve block Monitors Used: Standard Monitors Preoperative Comments:: 64 yo female for shoulder manipulation. Sig PMHx: anxiety (lorazepam), LBP, migraine. former smoker, occ EtOH.
[2024-08-22] MEDS: Lactated Ringers 1,000 ML 30 ML IV (06:43)
--- NOTE | 2024-08-22 07:08 | W.PM.DSUDISC ---
Date of service: 08/22/24 Discharge Plan Disposition Patient Disposition: Home Condition: Stable Discharge Details Attending Provider: Jayme Tobar Primary Care Provider: Mackenzie Hollis Home Meds and New Rx's Prescriptions: New naproxen 250 mg tablet 250 - 500 mg PO BID PRN (Reason: Moderate pain) Qty: 40 0RF oxycodone 5 mg tablet 5 - 10 mg PO Q4H PRN (Reason: Moderate to severe pain) Qty: 18 0RF Continued ibuprofen 800 mg tablet 800 mg PO Q8H PRN (Reason: R shoulder pain) Qty: 270 1RF solifenacin 5 mg tablet See Rx Instructions .ROUTE .COMPLEX Qty: 90 3RF Dose Instruction: TAKE ONE TABLET BY MOUTH EVERY DAY Rx Instructions: TAKE ONE TABLET BY MOUTH EVERY DAY cyclobenzaprine 10 mg tablet 10 mg PO TID PRN (Reason: muscle spasm) Qty: 90 1RF triamcinolone acetonide 0.1 % cream See Rx Instructions .ROUTE .COMPLEX Qty: 30 3RF Dose Instruction: APPLY TOPICALLY TO HAND TWICE A DAY FOR ECZEMA Rx Instructions: APPLY TOPICALLY TO HAND TWICE A DAY FOR ECZEMA lorazepam 1 mg tablet 1 mg PO ONCE PRN (Reason: prior to MRI) Qty: 1 0RF EXCEDRIN MIGRAINE TABLET 1 EACH tablet 2 ea PO PRN Discharge Instructions Additional Instructions: Surgery: Right shoulder manipulation under anesthesia on 08/22/24 Activity: Encourage increasing range of motion. Perform daily stretching exercises. Resume physical therapy tomorrow. Prescriptions: Naproxen 250 mg take 1-2 every 12 hours with a meal as needed for moderate pain Oxycodone 5 mg take 1-2 every 4-6 hours as needed for severe pain You may use cbyu-yay-aiskmfs Tylenol (acetaminophen) as needed for mild pain. These pain medications may be taken all at once or in different combinations as needed. Also, recommend Colace (docusate) as a stool softener as surgery and pain medicine cause constipation. You may try vcyu-fqe-jurkzel diphenhydramine (Benadryl) 25-50 mg nightly as a sleep aid Dressings: None Follow-up: 10-[address] Tobar Let us know right away if you develop any redness, drainage, fevers, chest pain, or trouble breathing. Do not drink alcohol or drive for at least 24 hours after anesthesia. Please call the office during business hours with any questions or concerns. Discharge Orders Discharge Orders: Discharge Order (Routine); Ordered 08/22/24 Ordered By: Denny Luna DS: Diagnosis Discharge Diagnosis (1) Adhesive capsulitis of right shoulder: Status: Acute
--- NOTE | 2024-08-22 07:16 | W.PM.OP ---
Operative Note Operative Note PRE-OP DIAGNOSIS: Right shoulder stiffness PROCEDURE: Right shoulder manipulation under anesthesia, CPT #32952 SURGEON: Jayme Tobar ANESTHESIA TYPE: General LMA/ETT and Primary Nerve Block Refer to Anesthesia Record ESTIMATED BLOOD LOSS: 0 COMPLICATIONS: None Patient was transported to: same day Patient's condition: stable Indications: Please see complete medical record for details. Findings: Excellent easy release of adhesions, no instability Procedure Description: In the operating room, general anesthesia was induced. The patient was positioned supine on the stretcher. Preoperative antibiotics were omitted. The correct patient, procedure, and side of the procedure were all verified prior to beginning. The right shoulder was examined with range of motion about 115 degrees forward elevation and 35 degrees external rotation. Internal rotation at about 90 degrees 45 degrees, abduction about 90 degrees. These endpoints had relatively soft and feel. A short lever arm and gradual to steady gentle pressure was used to perform the manipulation starting with forward elevation, and then confirming external rotation at the side, adduction across the body, and abduction with internal and external rotation. While going to forward elevation very soft and easy complete release was achieved quite readily with much less release needed in any other direction including external rotation, adduction across the body, and abduction with internal rotation. Range of motion was then tested and full. All endpoints were gently exaggerated. The shoulder joint remained stable. While the patient remained under anesthesia, all directions were stretched and repeated numerous times. The patient awoke from anesthesia without complication and was transferred to the recovery room in a stable condition. Date of Procedure: 08/22/24
--- NOTE | 2024-08-22 07:18 | W.PM.DSUDISC ---
Discharge Plan Disposition Patient Disposition: Home Condition: Stable Discharge Details Attending Provider: Jayme Tobar Primary Care Provider: Mackenzie Hollis Home Meds and New Rx's Prescriptions: New naproxen 250 mg tablet 250 - 500 mg PO BID PRN (Reason: Moderate pain) Qty: 40 0RF oxycodone 5 mg tablet 5 - 10 mg PO Q4H PRN (Reason: Moderate to severe pain) Qty: 18 0RF Continued ibuprofen 800 mg tablet 800 mg PO Q8H PRN (Reason: R shoulder pain) Qty: 270 1RF solifenacin 5 mg tablet See Rx Instructions .ROUTE .COMPLEX Qty: 90 3RF Dose Instruction: TAKE ONE TABLET BY MOUTH EVERY DAY Rx Instructions: TAKE ONE TABLET BY MOUTH EVERY DAY cyclobenzaprine 10 mg tablet 10 mg PO TID PRN (Reason: muscle spasm) Qty: 90 1RF triamcinolone acetonide 0.1 % cream See Rx Instructions .ROUTE .COMPLEX Qty: 30 3RF Dose Instruction: APPLY TOPICALLY TO HAND TWICE A DAY FOR ECZEMA Rx Instructions: APPLY TOPICALLY TO HAND TWICE A DAY FOR ECZEMA lorazepam 1 mg tablet 1 mg PO ONCE PRN (Reason: prior to MRI) Qty: 1 0RF EXCEDRIN MIGRAINE TABLET 1 EACH tablet 2 ea PO PRN Discharge Instructions Additional Instructions: Surgery: Right shoulder manipulation under anesthesia on 08/22/24 Activity: Encourage increasing range of motion. Perform daily stretching exercises. Resume physical therapy tomorrow. Prescriptions: Naproxen 250 mg take 1-2 every 12 hours with a meal as needed for moderate pain Oxycodone 5 mg take 1-2 every 4-6 hours as needed for severe pain You may use aibw-rct-uhwpvvw Tylenol (acetaminophen) as needed for mild pain. These pain medications may be taken all at once or in different combinations as needed. Also, recommend Colace (docusate) as a stool softener as surgery and pain medicine cause constipation. You may try giti-tci-gbcoplw diphenhydramine (Benadryl) 25-50 mg nightly as a sleep aid Dressings: None Follow-up: 10-[address] Tobar You may take off the leg compression stockings this evening at home. You may also leave them on a few days longer if you have a history of leg swelling or edema. Let us know right away if you develop any redness, drainage, fevers, chest pain, or trouble breathing. Do not drink alcohol or drive for at least 24 hours after anesthesia. Please call the office during business hours with any questions or concerns. Discharge Orders Discharge Orders: Discharge Order (Routine); Ordered 08/22/24 Ordered By: Denny Luna DS: Diagnosis Discharge Diagnosis (1) Adhesive capsulitis of right shoulder: Status: Acute
[2024-08-22] MEDS: fentaNYL 100 MCG/2 ML VIAL IVP ×2 (08:06→08:22)
--- NOTE | 2024-08-22 08:06 | W.ANESNERVE ---
Nerve Block Single Injection Procedure Date and Time Date Performed: 08/22/24 Procedure Start: 07:30 Location Where Procedure Performed Procedure Location: Day Surgery Unit Reason Performed: Postoperative Analgesia Requesting Provider: Jayme Tobar Timeout Performed Timeout Performed: Yes Monitoring Used ECG, Blood Pressure, SpO2 and See EMR for corresponding vital signs Sterility Sterility: Hand Hygiene, Surgical Cap, Surgical Mask, Sterile Gloves, Eye Protection and Chlorhexidine Sedation Given During Procedure Sedation Given (Indicate Dose Given): Versed IV Dose:: 2 mg Patient Mental Status Patient Mental Status: Sedate with meaningful communication Nerve Block 1st Nerve Block: Laterality: Right Block Type: Interscalene Ultrasound Image Saved?: Yes Needle / Catheter Used: 80mm SonoPlex II Local Anesthetic Bolus (Indicate Dose Given): Lidocaine used for local infiltration of skin, Injected in 3-5ml increments after negative blood aspiration, Bupivacaine 0.5% Dose:: 10 ml and Exparel Dose:: 10 ml Additives (Indicate Dose Given): Normal Saline Ultrasound: Sterile probe cover and gel used Nerve Stimulator: Supplement to Ultrasound use and No twitch or parasthesia noted < 0.5 mA Paresthesia: None Procedure Tolerated: No Complications and Patient tolerated well Procedure Outcome: Successful Performed By: Washington Mena Supervised By: Grace Vigil
--- NOTE | 2024-08-22 09:38 | W.ANESPOSTOP ---
Postoperative Evaluation Date, Time and Location Date Performed: 08/22/24 Time Performed: 09:38 Patient Location: Day Surgery Unit Vital Signs Most Recent Imported Vital Signs: Most Recent Vital Signs Temp Pulse Resp BP Pulse Ox 36.1 C L 51 L 15 126/75 97 08/22/24 09:12 08/22/24 09:12 08/22/24 09:12 08/22/24 09:12 08/22/24 09:12 Pain Score Most Recent Pain Score: Most Recent Pain Score Pain Level 2 08/22/24 09:12 Assessment Mental Status: Awake (Alert & Oriented to Patient Baseline) Airway and Respiratory Function: Patent airway with normal (patient baseline) respiratory exam Cardiovascular Function: Hemodynamically Stable Hydration Status: Adequately Hydrated Nausea & Vomiting: No Nausea or Vomiting Pain: Pain is tolerable per patient Peripheral Nerve Block: Regional nerve block not resolved at time of post operative discharge
== END 2024-08-22 09:39 | disposition home or self-care (01) ==
PROVIDERS: PCP Nurse Practitioner; Visit Provider Student in an Organized Health Care Education/Training Program
PROC: (CPT 23700; principal; 2024-08-22 07:30)
DX: M75.01 Adhesive capsulitis of right shoulder (principal); M25.611 Stiffness of right shoulder, not elsewhere classified
CPT/HCPCS: 23700; 64415; J0665; J0666; J1885; J2250; J2704; J3010

== ENCOUNTER 2024-11-07 16:10 | Outpatient (CLI) | payer MEDICAID, SELFPAY ==
[2024-11-07 16:38] LABS: Abs Immature Grans 0.02 10^3/uL (0.0-0.06); HCT 39.8 % (36.0-46.0); HGB 13.4 g/dL (11.2-15.7); Immature Grans % 0.3 %; MCH 29.6 pg (27.0-33.0); MCHC 33.7 % (32.0-36.0); MCV 88 fL (80-95); MPV 11.1 fL (8.0-11.0); Platelet Count 232 10^3/uL (130-400); RBC 4.52 10^6/uL (3.93-5.22); RDW 12.4 % (11.7-14.6); RDW-SD 39.7 fL; WBC 5.72 10^3/uL (4.4-10.8)
[2024-11-07 17:08] LABS: Glucose 90 mg/dL (74-106)
== END 2024-11-07 16:11 | disposition home or self-care (01) ==
LOC: LBO 16:11
DX: H35.61 Retinal hemorrhage, right eye (principal)
CPT/HCPCS: 36415; 82947; 85025

== ENCOUNTER 2024-12-07 15:27 | Emergency (ER) | payer MEDICAID, SELFPAY ==
[2024-12-07 15:28] VITALS: BP 149/87; PULSE 90; RESP 15; TEMP 36.6; O2SAT 98
--- NOTE | 2024-12-07 16:02 | W.ED.GENAD ---
Discharge Plan Disposition Patient Disposition: Home Discharge Details Clinical Impression: Cellulitis Primary Care Provider: Chris Ruiz ED Provider: Rufino Ferrell Home Meds and New Rx's Prescriptions: New cephalexin 500 mg capsule 500 mg PO QID Qty: 28 0RF No Action ibuprofen 800 mg tablet 800 mg PO Q8H PRN (Reason: R shoulder pain) Qty: 270 1RF solifenacin 5 mg tablet See Rx Instructions .ROUTE .COMPLEX Qty: 90 3RF Dose Instruction: TAKE ONE TABLET BY MOUTH EVERY DAY Rx Instructions: TAKE ONE TABLET BY MOUTH EVERY DAY cyclobenzaprine 10 mg tablet 10 mg PO TID PRN (Reason: muscle spasm) Qty: 90 1RF triamcinolone acetonide 0.1 % cream See Rx Instructions .ROUTE .COMPLEX Qty: 30 3RF Dose Instruction: APPLY TOPICALLY TO HAND TWICE A DAY FOR ECZEMA Rx Instructions: APPLY TOPICALLY TO HAND TWICE A DAY FOR ECZEMA lisinopril 2.5 mg tablet 2.5 mg PO DAILY PRN (Reason: SBP >140) Qty: 30 0RF Rx Instructions: Hold Lisinopril if home systolic blood pressure (top number) is less than 140. EXCEDRIN MIGRAINE TABLET 1 EACH tablet 2 ea PO PRN Discharge Instructions Instructions: Cellulitis (Skin Infection), Adult ED Referrals: Chris Ruiz APRN [Primary Care Provider, Family Practice] - 3 days HPI General Date/Time Provider Initiated Documentation: 12/07/24 15:44. HPI Narrative: This is a 64-year-old female presenting to the emergency department with a chief complaint of rash on the left shoulder. She is concerned about a possibility of cellulitis. Patient states that she got her flu shot on . Since then she has developed some swelling and redness. She stated is quite painful and difficult to lift her arm. Pain radiates towards the axilla. No fluctuance. No fevers. No lesions or rash elsewhere. No cough, congestion, shortness of breath. Related Data Home Medications ?Medication ?Instructions ?Recorded ?Confirmed Excedrin Migraine Tablet 2 ea PO PRN 12/26/12 12/07/24 cyclobenzaprine 10 mg tablet 10 mg PO TID PRN muscle spasm #90 06/10/24 12/07/24 tabs ibuprofen 800 mg tablet 800 mg PO Q8H PRN R shoulder pain 06/10/24 12/07/24 #270 tabs solifenacin 5 mg tablet See Rx Instructions .Route 06/10/24 12/07/24 .COMPLEX #90 tabs triamcinolone acetonide 0.1 % See Rx Instructions .Route 06/10/24 12/07/24 topical cream .COMPLEX #30 grams lisinopril 2.5 mg tablet 2.5 mg PO DAILY PRN SBP >140 #30 12/05/24 12/07/24 tabs cephalexin 500 mg capsule 500 mg PO QID #28 caps 12/07/24 Previous Rx's ?Medication ?Instructions ?Recorded cyclobenzaprine 10 mg tablet 10 mg PO TID PRN muscle spasm #90 06/10/24 tabs ibuprofen 800 mg tablet 800 mg PO Q8H PRN R shoulder pain 06/10/24 #270 tabs solifenacin 5 mg tablet See Rx Instructions .Route 06/10/24 .COMPLEX #90 tabs triamcinolone acetonide 0.1 % See Rx Instructions .Route 06/10/24 topical cream .COMPLEX #30 grams lisinopril 2.5 mg tablet 2.5 mg PO DAILY PRN SBP >140 #30 12/05/24 tabs cephalexin 500 mg capsule 500 mg PO QID #28 caps 12/07/24 Allergies Allergy/AdvReac Type Severity Reaction Status Date / Time trazodone AdvReac Intermediate Dizziness/L Verified 12/07/24 15:32 ighthead General Stated Complaint: RashLesion DAVON: 3 Review of Systems All systems reviewed & are unremarkable except as noted in HPI and below Constitutional Constitutional: Reports system reviewed and no additional complaints, except as documented, Denies fever(s), Denies weakness and Denies weight loss Comments: Myalgias Eyes Eyes: Denies blurry vision ENT Ears, Nose, Mouth, and Throat: Denies sore throat Cardiovascular Cardiovascular: Denies chest pain, Denies palpitations and Denies dyspnea Respiratory Respiratory: Denies cough, Denies dyspnea and Denies wheezing Gastrointestinal Gastrointestinal: Denies abdominal pain, Denies diarrhea, Denies nausea and Denies vomiting Genitourinary Genitourinary: Denies hematuria and Denies dysuria Musculoskeletal Musculoskeletal: Denies back pain, Denies arthralgias and Denies numbness Integumentary/Breasts Skin/Breast: Reports rash Neurologic Neurologic: Denies numbness and Denies weakness Psychiatric Psychiatric: Denies suicidal ideation Endocrine Endocrine: Denies palpitations Allergic/Immunologic Allergic/Immunologic: Denies wheezing Exam Const General: no acute distress and well groomed HENMT Mouth: oral mucosae normal and moist mucous membranes Throat: posterior oropharynx normal Eyes Conjunctivae: conjunctivae normal Sclera: sclerae normal Neck Neck: full ROM and No JVD Resp Effort & Inspection: normal respiratory effort Auscultation: clear to auscultation bilaterally Cardio Rate: regular rate Rhythm: regular rhythm Heart Sounds: no murmurs GI Palpation: soft and nontender Skin General skin exam: no rashes or lesions noted Other: There is an erythematous wheal on the left shoulder. No fluctuance. No induration. No vesicles. No bleeding. Erythema measures approximately 3 cm x 2 cm. There is a small satellite area. Neuro General: patient alert and patient oriented x3 Extrem General: normal to inspection and full ROM Psych Appearance: grossly normal Mental Status: mental status grossly normal Speech and Movement: speech and movement normal Affect: normal affect Thought Process: normal Course Vital Signs Vital signs: Vital Signs Temperature 36.6 C 12/07/24 15:28 Pulse 90 12/07/24 15:28 Respiratory Rate 15 12/07/24 15:28 Blood Pressure 149/87 H 12/07/24 15:28 Pulse Oximetry 98 12/07/24 15:28 Temperature 36.6 C 12/07/24 15:28 Temperature Source Oral 12/07/24 15:28 Pulse 90 12/07/24 15:28 Respiratory Rate 15 12/07/24 15:28 Blood Pressure 149/87 H 12/07/24 15:28 Blood Pressure Position Sitting 12/07/24 15:28 Pulse Oximetry 98 12/07/24 15:28 Oxygen Delivery Method Room Air 12/07/24 15:28 Oxygen Flow Rate 0 12/07/24 15:28 Medical Decision Making This is a 64-year-old female presenting to the emergency department with a chief complaint of possible cellulitis. The patient was seen and examined by me. Old charts were reviewed and nursing notes were reviewed. She has been seen recently for dry eyes and anxiety in the primary care clinic. This is not related. Exam does reveal a suggestion of a developing cellulitis which would be consistent with a recent puncture wound surrounding the injection. Patient was started on Keflex. She will be discharged home to follow-up with her primary care. She can return if she has any problems or call if she has questions or concerns. No signs of sepsis or blood-borne infection at this time. [facility] All Active Problems (Updated 12/07/24 @ 16:06 by Rufino Ferrell MD) Cellulitis (Acute) Adhesive capsulitis of right shoulder (Acute) Abnormality of right breast on screening mammogram (Acute) OAB (overactive bladder) (Acute) SARS-CoV-2 positive (Acute ~07/30/21) Medical History Rotator cuff tear, right Right shoulder tendonitis Injection: 10/03/18 Eczema Anxiety Chronic low back pain History of migraine ASCUS (11/05/10) Surgical History Dilation and curettage (06/11/03) Family History Mother Dementia Father Cancer lung Social History Smoking/Tobacco Use Status: Former Tobacco Use Smoking risk assessment performed?: Yes Alcohol Intake: current Alcohol Intake frequency: holidays/special occasions only Drug use: Never Substance use type: does not use Household members: spouse Number of Children: 2 number of grandchildren: 3 Communication Needs: None Education Level: high school Do you need help understanding health information?: Rarely current occupation: retired from [employer] Do you think of yourself as: straight/heterosexual What is your relationship status?: How often do you talk on the phone with friends or family?: three or more times per week How often do you get together with friends or relatives?: three or more times per week Panel score (0-1 are the most socially isolated patients): 2 What type of physical activity do you participate in: none Seatbelt use: always Working smoke detector in home: Yes Carbon monox detector in home: Yes Do you feel safe at home: Yes Do you feel safe in your relationship?: Yes Victim of physical abuse: No Female Reproductive History Menstrual control method: other
[2024-12-07] MEDS: Cephalexin 250 MG CAP 500 MG PO (16:29)
== END 2024-12-07 16:36 | disposition home or self-care (01) ==
PROVIDERS: Emergency Provider Emergency Medicine
DX: L03.114 Cellulitis of left upper limb (principal)
CPT/HCPCS: 99283; 99284

== ENCOUNTER 2025-01-08 03:13 | Outpatient (CLI) | payer MEDICAID, SELFPAY ==
[2025-01-08 10:45] LABS: Anion Gap 7.1 mmol/L (3-11); BUN 13 mg/dL (7-18); CO2 29.9 mmol/L (21.0-32.0); Calcium 9.3 mg/dL (8.5-10.1); Chloride 104 mmol/L (98-107); Cholesterol 218 mg/dL (<200); Glucose 102 mg/dL (74-106); HDL Cholesterol 54 mg/dL (>or=50); Potassium 4.0 mmol/L (3.5-5.1); Sodium 141 mmol/L (136-145)
== END 2025-01-08 03:14 | disposition home or self-care (01) ==
LOC: LBO 03:14
DX: E78.5 Hyperlipidemia, unspecified (principal); I10 Essential (primary) hypertension
CPT/HCPCS: 36415; 80048; 80061